=== PATIENT | male | born 1945 | race African-American/Black ===

== ENCOUNTER 2024-01-01 05:00 | Inpatient (IN) | payer MEDICARE ==
[2024-01-01] MEDS ORDERED: fentaNYL 50 MCG/ML 2 ML VIAL ONE (13:05)
[2024-01-01] MEDS ORDERED: Rocuronium 50 MG/5 ML Multi-Dose VIAL ONE (13:05)
[2024-01-01] MEDS ORDERED: Midazolam 2 MG/2 ML VIAL ONE (13:05)
[2024-01-01] MEDS ORDERED: NS 10 ML IV ONE (13:07)
[2024-01-01] MEDS ORDERED: dexAMETHasone 10 MG/ML VIAL ONE (13:09)
[2024-01-01] MEDS ORDERED: EPINEPHrine 1 MG/10 ML (1:10,000) SYRINGE ONE (15:33)
[2024-01-01] MEDS ORDERED: NS 100 ML IV ONE (15:50)
[2024-01-01] MEDS ORDERED: Phenylephrine 10 MG/ML VIAL ONE (16:42)
== END 2024-01-12 13:50 | disposition home or self-care (01) | DRG 482 ==
LOC: SURG 05:00
PROVIDERS: Orthopaedic Surgery; ADMIT Internal Medicine
PROC: 0QS736Z Reposition Left Upper Femur with Intramedullary Internal Fixation Device, Percutaneous Approach (ICD-10-PCS; principal; 2024-01-01 15:00)
DX: S72.142A Displaced intertrochanteric fracture of left femur, initial encounter for closed fracture (principal); M17.12 Unilateral primary osteoarthritis, left knee
CPT/HCPCS: C1713; J0171; J0665; J0690; J1100; J2250; J2371; J2704; J2795; J3010